=== PATIENT | female | born 1990 | race Caucasian/White ===

== ENCOUNTER 2016-09-10 08:25 | Emergency (ER) | payer OTHER ==
[2016-09-10 08:30] VITALS: RESP 16; TEMP 98.1
--- NOTE | 2016-09-10 09:06 | EDPHY ---
H & P Time Seen by Provider: 09/10/16 08:35 HPI/ROS: CHIEF COMPLAINT: Increasing right-sided weakness HISTORY OF PRESENT ILLNESS: Patient is a history of multiple sclerosis and feels that she is developing a flare. In the past or flares include weakness as well as skin sensitivity. She is currently a patient of Ganesh Colón at [facility]. Usually she tells me that her flare-ups are associated with stress, for example at the end of the semester when she was a student. Starting yesterday morning she noticed increasing weakness in her right arm and leg. She was leaning to the right and having some difficulty walking but did not actually fall. She does not have associated speech difficulty or double vision. No headache or any head trauma. No recent illnesses. REVIEW OF SYSTEMS: Eye: no change in vision ENT: no sore throat Cardiac: no chest pain or syncope Pulmonary: no cough or SOB Abdomen: no vomiting, diarrhea, abdominal pain Musculoskeletal: no back pain Skin: no rash Neuro: no headache Constitutional: no fever : no urinary symptoms, no dysuria or hematuria. Denies . A comprehensive 10 point review of systems is otherwise negative aside from elements mentioned in the history of present illness. PAST MEDICAL HISTORY: Multiple sclerosis Social history: Nonsmoker General Appearance: Alert and conversant, cooperative. Eyes: No scleral icterus. Extraocular motion intact. ENT, Mouth: Normal mucous membranes. Respiratory: Normal respiratory effort, breath sounds equal, lungs are clear to auscultation. Cardiovascular: Regular rate and rhythm. Gastrointestinal: Abdomen is soft and non tender. Neurological: Alert and oriented x3. Normally conversant. 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 She can do thumb to index middle ring and little finger on both sides. She does have slightly decreased strength lifting her right leg off the bed but good plantar and dorsiflexion in both feet. Skin: Warm and dry, no rashes. Musculoskeletal: No peripheral edema and no joint swelling. Psychiatric: Not agitated. Emergency Department course/MDM: Likely exacerbation of MS, plan to consult with her neurologist for treatment plan. Neurologist recommends brain MRI and cervical spine MRI with and without contrast, 1 g IV Solu-Medrol q.day for the next 3 days. Discussed with the patient and consented. New left parietal demyelinating lesions consistent with multiple sclerosis as the cause of her symptoms, cervical spine does not show any new lesions, Miguel at 12:20 p.m. MRI reviewed with the patient on the computer system at this time, plan for her to return tomorrow and Monday morning for 2nd and 3rd doses of 1 g IV Solu- Medrol. Smoking Status: Never smoked Constitutional: Initial Vital Signs Temperature (C) 36.7 C 09/10/16 08:27 Heart Rate 79 09/10/16 08:27 Respiratory Rate 16 09/10/16 08:27 Blood Pressure 108/76 09/10/16 08:27 O2 Sat (%) 98 09/10/16 08:27 O2 Delivery Mode Room Air Allergies/Adverse Reactions: Sulfa (Sulfonamide Antibiotics) Allergy (Intermediate, Verified 09/10/16 08:26) Rash Home Medications: Medication Instructions Recorded Gilenya 01/29/13 Claritin 09/10/16 PRILOSEC 09/10/16 Medical Decision Making - Diagnostics Imaging Results: Imaging Impressions Brain MRI 09/10/16 09:19 Impression: Interval worsening of multiple sclerosis, with active demyelination in a left frontoparietal periventricular lesion. Findings discussed with Bryson Conner 09/10/2016, at 1220 hours. Cervical Spine MRI 09/10/16 09:19 Impression: Decreased conspicuity of a plaque in the upper cervical cord at C1. Differential Diagnosis: Differential for weakness considered including but not limited to intracranial hemorrhage, ischemic stroke, multiple sclerosis, spinal cord problem. Consult/Admit Bed Type: [place] [id number] - Data Points Laboratory Results: Laboratory Results 09/10/16 09:00 09/10/16 09:00 09/10/16 09/10/16 09/10/16 09:00 09:00 09:00 WBC 1.52 10^3/uL L 10^3/uL (3.80-9.50) RBC 4.74 10^6/uL 10^6/uL (4.18-5.33) Hgb 14.2 g/dL g/dL (12.6-16.3) Hct 42.6 % % (38.0-47.0) MCV 89.9 fL fL (81.5-99.8) MCH 30.0 pg pg (27.9-34.1) MCHC 33.3 g/dL g/dL (32.4-36.7) RDW 14.4 % % (11.5-15.2) Plt Count 146 10^3/uL L 10^3/uL (150-400) MPV 12.7 fL H fL (8.7-11.7) Neut % (Auto) Not Reported Lymph % (Auto) Not Reported [place] % (Auto) Not Reported Eos % (Auto) Not Reported Baso % (Auto) Not Reported Nucleat RBC Rel Count 0.0 % % (0.0-0.2) Absolute Neuts (auto) Not Reported Absolute Lymphs (auto) Not Reported Absolute Monos (auto) Not Reported Absolute Eos (auto) Not Reported Absolute Basos (auto) Not Reported Absolute Nucleated RBC 0.00 10^3/uL 10^3/uL (0-0.01) Immature Gran % Not Reported Seg Neutrophils % 34 % % Lymphocytes % 48 % % Monocytes % 13 % % Eosinophils % 5 % % Immature Gran # Not Reported Absolute Seg Neuts 0.52 10^/uL L 10^/uL (1.70-6.50) Absolute Lymphocytes 0.73 10^3/uL L 10^3/uL (1.00-3.00) Absolute Monocytes 0.20 10^3/uL L 10^3/uL (0.30-0.80) Absolute Eosinophils 0.08 10^3/uL 10^3/uL (0.03-0.40) Platelet Estimate DECREASED L (ADEQ) Large Platelets PRESENT H Giant Platelets PRESENT H Sodium 141 mEq/L mEq/L (134-144) Potassium 4.7 mEq/L mEq/L (3.5-5.2) Chloride 106 mEq/L mEq/L (97-110) Carbon Dioxide 20 mEq/l L mEq/l (22-31) Anion Gap 15 mEq/L mEq/L (8-16) BUN 11 mg/dL mg/dL (7-23) Creatinine 0.8 mg/dL mg/dL (0.6-1.0) Estimated GFR > 60 Glucose 85 mg/dL mg/dL (70-100) Calcium 9.7 mg/dL mg/dL (8.5-10.4) Beta HCG, Qual NEGATIVE Specimen Hemolysis 114 Medications Given: Discontinued Medications Methylprednisolone Sodium (Succinate 1,000 mg/ Dextrose) 100 mls @ 100 mls/hr IV EDNOW ONE Stop: 09/10/16 10:18 Last Admin: 09/10/16 09:49 Dose: 100 mls Departure - Departure Disposition: Home, Routine, Self-Care Clinical Impression: Multiple sclerosis Condition: Good Instructions: Methylprednisolone (By injection) Additional Instructions: Return tomorrow morning and Monday morning for repeat IV steroids, follow-up with your neurologist early next week. Referrals: Jami Vega MD [Primary Care Provider] - As per Instructions Ganesh Colón MD [Medical Doctor] - As per Instructions
[2016-09-10] MEDS ORDERED: methylPREDNISolone SOD SUCC 1,000 MG in D5W 100 ML IV ONE (09:19)
[2016-09-10 09:25] LABS: ADD DIFF? YES; ADD MORPH? NO; ADD SCAN? NO; ATYPICAL LYMPHOCYTE FLAG 60 (0-99); FRAGMENT RBC FLAG 0 (0-99); HEMATOCRIT 42.6 % (38.0-47.0); HEMOGLOBIN 14.2 g/dL (12.6-16.3); LEFT SHIFT FLG 0 (0-99); LIPEMIA HEMOLYSIS FLAG 80 (0-99); MEAN CELL HEMOGLOBIN CONCENTR. 33.3 g/dL (32.4-36.7); MEAN CELL VOLUME 89.9 fL (81.5-99.8); MEAN PLATELET VOLUME 12.7 fL (8.7-11.7); PLATELET CLUMPS FLAG 0 (0-99); PLATELET COUNT 146 10^3/uL (150-400); RED BLOOD CELL COUNT 4.74 10^6/uL (4.18-5.33); RED CELL DISTRIBUTION WIDTH 14.4 % (11.5-15.2)
[2016-09-10 09:48] LABS: ANION GAP 15 mEq/L (8-16); CALCIUM 9.7 mg/dL (8.5-10.4); CARBON DIOXIDE 20 mEq/l (22-31); CHLORIDE 106 mEq/L (97-110); CREATININE 0.8 mg/dL (0.6-1.0); GLOMERULAR FILTRATION RATE > 60; GLUCOSE 85 mg/dL (70-100); POTASSIUM 4.7 mEq/L (3.5-5.2); SODIUM 141 mEq/L (134-144); SPECIMEN HEMOLYSIS 114
[2016-09-10 09:59] LABS: GIANT PLATELETS PRESENT; LARGE PLATELETS PRESENT; PLATELET ESTIMATE DECREASED (ADEQ)
[2016-09-10] MEDS ORDERED: GADOBUTROL 10 ML VIAL IVP ONE (10:14)
[2016-09-10 10:28] VITALS: O2SAT 97
[2016-09-10 12:38] VITALS: BP 109/78; PULSE 74
== END 2016-09-10 12:32 | disposition home or self-care (01) ==
DX: G35 Multiple sclerosis (principal)
CPT/HCPCS: 96365; A9585; J2930

== ENCOUNTER 2016-09-11 09:05 | Emergency (ER) | payer OTHER ==
[2016-09-11 09:15] VITALS: RESP 18; TEMP 98.6
[2016-09-11] MEDS ORDERED: methylPREDNISolone SOD SUCC 1 GM in NS 100 ML IV ONE (09:18)
--- NOTE | 2016-09-11 09:25 | EDPHY ---
H & P Stated Complaint: has MS here for 2nd dose of steroids HPI/ROS: Chief complaint: Repeat dose of methylprednisolone History of present illness: This is a 25-year-old female presents to the emergency department for a 2nd dose of methylprednisolone. Patient has a history of MS. She was seen here yesterday for increasing right-sided weakness. She was diagnosed MS flare. She was started on methylprednisolone 1 g. She was asked to return this morning and tomorrow morning for repeat dose of methylprednisolone [address] Colón will follow up with her this week. My evaluation patient reports minimal improvement in symptoms. No new signs or symptoms. - Personal History LMP (Females 10-55): IUD In Place Current Tetanus/Diphtheria Vaccine: Yes Tetanus Vaccine Date: probably 2007 - Medical/Surgical History Hx Asthma: No Hx Chronic Respiratory Disease: No Hx Diabetes: No Hx Cardiac Disease: No Hx Renal Disease: No Hx Cirrhosis: No Hx Alcoholism: No Hx HIV/AIDS: No Hx Splenectomy or Spleen Trauma: No Other PMH: MS - Social History Smoking Status: Never smoked - Physical Exam Exam: General Appearance: Alert and no distress. Eyes: Pupils equal and round no injection. Respiratory: Chest is non tender, lungs are clear to auscultation. Cardiac: regular rate and rhythm Musculoskeletal: Neck is supple and non tender. Extremities have full range of motion and are non tender. Skin: No rashes or lesions. Neurological: Alert and oriented x3. Cranial nerves 2-12 grossly intact. Strength and sensation appear to be intact. Ambulating well. Constitutional: Initial Vital Signs Temperature (C) 37 C 09/11/16 09:13 Heart Rate 90 09/11/16 09:13 Respiratory Rate 18 09/11/16 09:13 Blood Pressure 109/72 09/11/16 09:13 O2 Sat (%) 98 09/11/16 09:13 O2 Delivery Mode Room Air Allergies/Adverse Reactions: Sulfa (Sulfonamide Antibiotics) Allergy (Intermediate, Verified 09/11/16 09:12) Rash Home Medications: Medication Instructions Recorded Gilenya 01/29/13 Claritin 09/10/16 PRILOSEC 09/10/16 MIRENA 09/11/16 Medical Decision Making ED Course/Re-evaluation: Patient seen under the supervision of my primary supervising physician Dr. Reba Herbert. Patient presents to the emergency department for repeat dose of methylprednisolone. Patient with history of MS. New lesion noted yesterday on MRI with right-sided symptoms, her neurologist recommended methylprednisolone for the next 3 days. She will return tomorrow for her 3rd dose of methylprednisolone. She will follow up with her neurologist Dr. Colón this week. Return precautions are given. Patient voiced understanding and agreement with plan. - Data Points Medications Given: Discontinued Medications Methylprednisolone Sodium Succinate 1 gm/ Sodium Chloride 108 mls @ 108 mls/hr IV EDNOW ONE Stop: 09/11/16 10:17 Last Admin: 09/11/16 10:00 Dose: 108 mls Departure - Departure Disposition: Home, Routine, Self-Care Clinical Impression: Multiple sclerosis Condition: Good Instructions: Methylprednisolone (By injection) Additional Instructions: Please return to the emergency room tomorrow morning for your next dose of IV methylprednisolone. Please follow-up with your neurologist this week as arranged. If symptoms worsen or new symptoms develop return to the emergency room for recheck Referrals: Jami Vega MD [Primary Care Provider] - As per Instructions
[2016-09-11 11:19] VITALS: BP 106/65; PULSE 68; O2SAT 97
== END 2016-09-11 11:18 | disposition home or self-care (01) ==
DX: G35 Multiple sclerosis (principal)
CPT/HCPCS: 96365; J2930

== ENCOUNTER 2016-09-12 08:50 | Emergency (ER) | payer OTHER ==
[2016-09-12] MEDS ORDERED: methylPREDNISolone SOD SUCC 1 GM in NS 100 ML IV ONE (09:24)
--- NOTE | 2016-09-12 09:57 | EDPHY ---
H & P Time Seen by Provider: 09/12/16 09:07 HPI/ROS: CHIEF COMPLAINT: MS exacerbation HISTORY OF PRESENT ILLNESS: 35-year-old female presents to the emergency department with MS exacerbation. The patient was seen in the emergency department initially 2 days ago, on 09/10/2016. She had MRI of her brain and cervical spine which showed active demyelinating lesions in her brain. She was to be placed on 1 g of IV Solu-Medrol for 3 days and then have close follow-up with her neurologist. The patient states that her symptoms began abruptly on Monday, 3 days ago where she was having difficulty walking. She is still having difficulty using her right arm and riding specifically. She denies a headache. Denies chest pain or difficulty breathing. No reported trauma. She states that since receiving the last 2 doses of IV steroids, she feels that there is very little improvement. Denies abdominal pain or vomiting. Last menstrual period was 2 years ago since she has an IUD. She denies . REVIEW OF SYSTEMS: Constitutional: No fever, no chills. Eyes: No double or blurry vision. ENT: No sore throat. Respiratory: No cough, no shortness of breath. Cardiac: No chest pain. Gastrointestinal: No abdominal pain, vomiting or diarrhea. Genitourinary: No dysuria. Musculoskeletal: No neck or back pain. Skin: No rashes. Neurological: No headache. Past Medical/Surgical History: MS, IUD Social History: Single and lives in [place] Smoking Status: Never smoked Physical Exam: General Appearance: Alert, no distress. Eyes: Pupils equal and round. Extraocular motions are all intact. ENT: Mouth: Mucous membranes moist. Respiratory: No wheezing, rhonchi, or rales, lungs are clear to auscultation. Cardiovascular: Regular rate and rhythm. Gastrointestinal: Abdomen is soft and nontender, no masses, no rebound or guarding, bowel sounds normal. Neurological: Alert and oriented x 3, cranial nerves II through XII grossly intact Skin: Warm and dry, no rashes. Musculoskeletal: Nontender to palpate along the cervical, thoracic or lumbar spine. Neck is supple. Extremities: Full range of motion and no peripheral edema. Psychiatric: Patient is oriented X 3, there is no agitation. Constitutional: Initial Vital Signs Temperature (C) 37.1 C 09/12/16 08:54 Heart Rate 69 09/12/16 08:54 Respiratory Rate 16 09/12/16 08:54 Blood Pressure 100/62 09/12/16 08:54 O2 Sat (%) 98 09/12/16 08:54 O2 Delivery Mode Room Air Allergies/Adverse Reactions: Sulfa (Sulfonamide Antibiotics) Allergy (Intermediate, Verified 09/12/16 08:53) Rash Home Medications: Medication Instructions Recorded Gilenya 01/29/13 Claritin 09/10/16 PRILOSEC 09/10/16 MIRENA 09/11/16 Medical Decision Making ED Course/Re-evaluation: 25-year-old female presents to the emergency department for her 3rd dose of 1 g IV Solu-Medrol. I did speak with Dr. Dimitry Stone, who was on-call for her neurologist, Dr. Ganesh Colón. I informed him of her active demyelinating lesions on her MRI of her brain from 3 days ago. He agreed with giving her the her 3rd dose of 1 g IV Solu-Medrol and then have close follow-up to be seen in their clinic tomorrow and they can decide if she needs to have continued IV steroids since she does not have improvement since these were 1st infused. The patient was contacted by Dr. Dimitry Stone office and they would like her to come to the emergency department tomorrow and Monday for additional 1 g IV Solu-Medrol for a total of 5 doses. She will then follow up on Monday as scheduled with her neurologist. Differential Diagnosis: Including but not limited to MS exacerbation, CVA, allergic reaction - Data Points Medications Given: Discontinued Medications Methylprednisolone Sodium Succinate 1 gm/ Sodium Chloride 108 mls @ 108 mls/hr IV EDNOW ONE Stop: 09/12/16 10:23 Last Admin: 09/12/16 10:02 Dose: 108 mls Departure - Departure Disposition: Home, Routine, Self-Care Clinical Impression: Exacerbation of multiple sclerosis Condition: Good Instructions: Autoimmune Disease (ED) Additional Instructions: Return to the emergency department tomorrow, 09/13/2016 and 09/14/2016 for 1 gram IV Solu-Medrol infusion. Follow-up with neurologist as discussed. Referrals: Jami Vega MD [Primary Care Provider] - As per Instructions Ganesh Colón MD [Medical Doctor] - 2-3 days without fail
[2016-09-12 11:37] VITALS: BP 106/64; PULSE 51; RESP 14; TEMP 98.6; O2SAT 97
== END 2016-09-12 11:35 | disposition home or self-care (01) ==
DX: G35 Multiple sclerosis (principal)
CPT/HCPCS: 96365; J2930

== ENCOUNTER 2016-09-13 08:21 | Emergency (ER) | payer OTHER ==
[2016-09-13 08:29] VITALS: TEMP 98.2
[2016-09-13] MEDS ORDERED: methylPREDNISolone SOD SUCC 1 GM in NS 100 ML IV ONE (09:04)
--- NOTE | 2016-09-13 09:24 | EDPHY ---
H & P Smoking Status: Never smoked Time Seen by Provider: 09/13/16 09:02 HPI/ROS: CHIEF COMPLAINT: MS flare, IV steroids HISTORY OF PRESENT ILLNESS: 25-year-old female presents to the emergency department for IV steroid infusion. The patient has a history of multiple sclerosis and developed flare-up of symptoms on Monday, 4 days ago. She has been receiving 1 g IV Solu-Medrol daily since Monday, the last 3 days. She was instructed by her neurologist to extend this by 2 additional days and she is here for IV Solu-Medrol infusion today. The patient has a scheduled appointment with her neurologist tomorrow afternoon. The patient has had some weakness on her right side and feels that her coordination is off. She has not noticed a great deal of improvement since start of steroids. Denies chest pain or difficulty breathing. Denies abdominal pain. Denies neck or back pain. REVIEW OF SYSTEMS: Constitutional: No fever, no chills. Eyes: No double or blurry vision. ENT: No sore throat. Respiratory: No cough, no shortness of breath. Cardiac: No chest pain. Gastrointestinal: No abdominal pain, vomiting or diarrhea. Genitourinary: No dysuria. Musculoskeletal: No neck or back pain. Skin: No rashes. Neurological: No headache. (Minerva Pachecorina Whit) Past Medical/Surgical History: Multiple sclerosis (Gale Pacheco) Social History: Single from [place] (Gale Pacheco) Physical Exam: General Appearance: Alert, no distress. Vital signs are stable. She is in no apparent distress. Eyes: Pupils equal and round. Extraocular motions are all intact. ENT: Mouth: Mucous membranes moist. Respiratory: No wheezing, rhonchi, or rales, lungs are clear to auscultation. Cardiovascular: Regular rate and rhythm. Gastrointestinal: Abdomen is soft and nontender, no masses, no rebound or guarding, bowel sounds normal. Neurological: Alert and oriented x 3, cranial nerves II through XII grossly intact Skin: Warm and dry, no rashes. Musculoskeletal: Nontender to palpate along the cervical, thoracic or lumbar spine. Neck is supple. Extremities: Full range of motion and no peripheral edema. Psychiatric: Patient is oriented X 3, there is no agitation. (Gale Pacheco) Constitutional: Initial Vital Signs Temperature (C) 36.8 C 09/13/16 08:27 Heart Rate 54 L 09/13/16 08:27 Respiratory Rate 17 09/13/16 08:27 Blood Pressure 109/77 09/13/16 08:27 O2 Sat (%) 98 09/13/16 08:27 O2 Delivery Mode Room Air Allergies/Adverse Reactions: Sulfa (Sulfonamide Antibiotics) Allergy (Intermediate, Verified 09/13/16 08:26) Rash Home Medications: Medication Instructions Recorded Gilenya 01/29/13 Claritin 09/10/16 PRILOSEC 09/10/16 MIRENA 09/11/16 Medical Decision Making ED Course/Re-evaluation: 25-year-old female presents for IV steroid. Patient clinically has exacerbation of her multiple sclerosis. She had a recent MRI of her brain and MRI of her cervical spine which revealed new active demyelinating lesions in her brain. She was instructed by her neurologist to have 5 days of IV Solu- Medrol. Patient was given 1 g IV Solu-Medrol in the emergency department, does 4. She was instructed to return to the emergency department tomorrow for her 5th and final dose of IV Solu-Medrol. She will follow up with her neurologist as scheduled tomorrow afternoon. (Gale Pacheco) I did not see this patient while she was in the emergency department. However her care was discussed with the PA while the patient was in the department. I agree with treatment plan and management (Goran Ervin) Differential Diagnosis: Including but not limited to MS flare up, CVA, electrolyte abnormality (Gale Pacheco) - Data Points Medications Given: Discontinued Medications Methylprednisolone Sodium Succinate 1 gm/ Sodium Chloride 108 mls @ 108 mls/hr IV EDNOW ONE Stop: 09/13/16 10:03 Last Admin: 09/13/16 09:52 Dose: 108 mls Departure - Departure Disposition: Home, Routine, Self-Care Clinical Impression: Exacerbation of multiple sclerosis, IV steroid infusion Condition: Good Instructions: Autoimmune Disease (ED) Additional Instructions: Return to the emergency department tomorrow morning for your 5th and final dose of 1 g IV Solu-Medrol. Keep scheduled appointment with your neurologist tomorrow. Referrals: Jami Vega MD [Primary Care Provider] - As per Instructions
[2016-09-13 10:56] VITALS: BP 122/86; PULSE 59; RESP 16; O2SAT 97
== END 2016-09-13 10:57 | disposition home or self-care (01) ==
DX: G35 Multiple sclerosis (principal); Z79.52 Long term (current) use of systemic steroids
CPT/HCPCS: 96365; J2930

== ENCOUNTER 2016-09-14 08:43 | Emergency (ER) | payer OTHER ==
[2016-09-14 08:50] VITALS: RESP 16
[2016-09-14] MEDS ORDERED: methylPREDNISolone SOD SUCC 1 GM in NS 100 ML IV ONE (08:59)
--- NOTE | 2016-09-14 09:26 | EDPHY ---
H & P Smoking Status: Never smoked Time Seen by Provider: 09/14/16 08:59 HPI/ROS: CHIEF COMPLAINT: MS exacerbation, IV steroids HISTORY OF PRESENT ILLNESS: 25-year-old female presents to the emergency department with MS exacerbation and 5th and final dose of IV Solu-Medrol. Patient has a history of multiple sclerosis and began having symptoms of flare up on Monday, 5 days ago. She has had IV Solu-Medrol daily since Monday and today being her 5th and final dose. She has a scheduled appointment with her neurologist this afternoon. She thinks that her signature and motor skills with her right upper extremity are maybe slightly better since steroid infusion otherwise she feels that things are about the same. No chest pain or difficulty breathing. No headache. No rash. No paresthesias in her lower extremities. REVIEW OF SYSTEMS: Constitutional: No fever, no chills. Eyes: No double or blurry vision. ENT: No sore throat. Respiratory: No cough, no shortness of breath. Cardiac: No chest pain. Gastrointestinal: No abdominal pain, vomiting or diarrhea. Genitourinary: No dysuria. Musculoskeletal: No neck or back pain. Skin: No rashes. Neurological: No headache. (Gale Pacheco) Past Medical/Surgical History: Multiple sclerosis (Gale Pacheco) Social History: Single (Gale Pacheco) Physical Exam: General Appearance: Alert, no distress. Mentating normally and answering questions appropriately. Eyes: Pupils equal and round. Extraocular motions are all intact. ENT: Mouth: Mucous membranes moist. Respiratory: No wheezing, rhonchi, or rales, lungs are clear to auscultation. Cardiovascular: Regular rate and rhythm. Gastrointestinal: Abdomen is soft and nontender, no masses, no rebound or guarding, bowel sounds normal. Neurological: Alert and oriented x 3, cranial nerves II through XII grossly intact Skin: Warm and dry, no rashes. Musculoskeletal: Nontender to palpate along the cervical, thoracic or lumbar spine. Neck is supple. Extremities: Full range of motion and no peripheral edema. Psychiatric: Patient is oriented X 3, there is no agitation. (Gale Pacheco) Constitutional: Initial Vital Signs Heart Rate 56 L 09/14/16 08:48 Respiratory Rate 16 09/14/16 08:48 Blood Pressure 110/79 09/14/16 08:48 O2 Sat (%) 97 09/14/16 08:48 O2 Delivery Mode Room Air Allergies/Adverse Reactions: Sulfa (Sulfonamide Antibiotics) Allergy (Intermediate, Verified 09/13/16 08:26) Rash Home Medications: Medication Instructions Recorded Gilenya 01/29/13 Claritin 09/10/16 PRILOSEC 09/10/16 MIRENA 09/11/16 Medical Decision Making ED Course/Re-evaluation: 25-year-old female presents with MS exacerbation and IV steroid infusion. The patient is here for her 5th and final dose of 1 g IV Solu-Medrol. She was instructed to keep her scheduled appointment this afternoon at 2:00 p.m. with her neurologist. (Gale Pacheco) I did not see this patient while she was in the emergency department. However her care was discussed with the PA while the patient was in the department. I agree with treatment plan and management (Goran Ervin) Differential Diagnosis: Including but not limited to MS exacerbation, CVA, TIA (Gale Pacheco) - Data Points Medications Given: Discontinued Medications Methylprednisolone Sodium Succinate 1 gm/ Sodium Chloride 108 mls @ 108 mls/hr IV EDNOW ONE Stop: 09/14/16 09:58 Last Admin: 09/14/16 09:47 Dose: 108 mls Departure - Departure Disposition: Home, Routine, Self-Care Clinical Impression: Exacerbation of multiple sclerosis Condition: Good Instructions: Autoimmune Disease (ED) Additional Instructions: Keep scheduled appointment at 2:00 p.m. with your neurologist. Return if you have any other concerns. Referrals: Jami Vega MD [Primary Care Provider] - As per Instructions
[2016-09-14 09:48] VITALS: O2SAT 96
[2016-09-14 11:12] VITALS: BP 101/75; PULSE 47; TEMP 97.9
== END 2016-09-14 11:11 | disposition home or self-care (01) ==
DX: G35 Multiple sclerosis (principal)
CPT/HCPCS: 96365; J2930

== ENCOUNTER → 2017-03-19 | Outpatient (CLI) | payer OTHER | LOC: FIMAGING 08:43 | PROVIDERS: ATTEND Physician Assistant Medical | DX: G35 Multiple sclerosis (principal) ==